=== PATIENT | female | born 1955 | race African-American/Black ===

== ENCOUNTER 2021-03-06 07:08 | Observation (INO) | payer OTHER ==
[2021-03-01 13:57] LABS: BASOPHILS % 0.4 % (0.0-1.0); EOSINOPHILS # (AUTO) 0.1 (0.0-0.4); EOSINOPHILS % 1.7 % (0.0-6.0); HEMATOCRIT 41.5 % (34.2-44.1); HEMOGLOBIN 13.3 g/dL (12.0-16.0); LYMPHOCYTES # (AUTO) 2.1 (1.0-3.2); LYMPHOCYTES % 26.1 % (18.0-39.1); MEAN CORPUSCULAR HEMOGLOBIN 30.1 pg (28-32); MEAN CORPUSCULAR VOLUME 93.9 fL (81-99); MONOCYTES # (AUTO) 0.7 (0.2-0.8); MONOCYTES % 8.9 % (4.4-11.3); NEUTROPHILS # (AUTO) 5.1 (2.1-6.9); NEUTROPHILS % 62.5 % (38.7-80.0); PLATELET COUNT 209 x10e3/uL (140-360); RED BLOOD COUNT 4.42 x10e6/uL (3.6-5.1); RED CELL DISTRIBUTION WIDTH 13.3 % (11.7-14.4)
[2021-03-01 14:13] LABS: INR 0.95; PROTHROMBIN TIME 13.3 seconds (11.9-14.5)
[2021-03-01 14:14] LABS: PARTIAL THROMBOPLASTIN TIME 28.1 seconds (23.8-35.5)
[2021-03-01 14:17] LABS: ANION GAP 15.1 mmol/L (8-16); CALCIUM 9.2 mg/dL (8.4-10.2); CREATININE, SERUM 1.1 mg/dL (0.57-1.11); POTASSIUM 5.1 mmol/L (3.5-5.1)
[~2021-03-06] VITALS: Ht 162.6 cm; Wt 98.4 kg
[~2021-03-06 07:08] MED LIST: CLONIDINE HCL0.1 MG PO; FUROSEMIDE40 MG PO; IBUPROFEN200 MG PO; LISINOPRIL10 MG PO; METFORMIN HCL500 MG PO; METOPROLOL TART50 MG PO; SIMVASTATIN20 MG PO; ULTRAM50 MG PO
[2021-03-06] MEDS ORDERED: ROPIVACAINE 246.25 MG, EPINEPHRINE HCL 1:1000 1ML 0.5 MG, CLONIDINE HCL 0.08 MG, KETORO... INJ ONE ×5 (07:30)
[2021-03-06] MEDS ORDERED: CELECOXIB 200 MG CAP ONE (07:46)
[2021-03-06] MEDS ORDERED: GABAPENTIN 300 MG CAP ONE (07:47)
[2021-03-06] MEDS ORDERED: DEXAMETHASONE SOD PHOS 10 MG/1 ML VIAL ONE (07:47)
[2021-03-06] MEDS ORDERED: CEFAZOLIN SOD 1 GM/NS 50ML 100 ML IV ONE (07:47)
[2021-03-06] MEDS ORDERED: SODIUM CHLORIDE 0.9% 500ML 500 ML ONE ×2 (08:32→09:09)
[2021-03-06] MEDS ORDERED: TRANEXAMIC ACID 1,000 MG/10 ML ML ONE (08:33)
[2021-03-06] MEDS ORDERED: VANCOMYCIN HCL 1,000 MG ONE (08:33)
[2021-03-06] MEDS ORDERED: VANCOMYCIN HCL 500 MG ONE (09:09)
[2021-03-06] MEDS ORDERED: DIPHENHYDRAMINE HCL INJ 50 MG/ML VIAL IV PRN (10:30)
[2021-03-06] MEDS ORDERED: ONDANSETRON HCL INJ 2MG/ML 2ML 2 MG/ML VIAL IV PRN (10:30)
[2021-03-06] MEDS ORDERED: ACETAMINOPHEN 650 MG SUPP PR PRN (10:30)
[2021-03-06] MEDS ORDERED: KETOROLAC TROMETHAMINE 30 MG/ML VIAL IV PRN (10:30)
[2021-03-06] MEDS ORDERED: DOCUSATE SODIUM 100 MG CAP PO PRN (10:30)
[2021-03-06] MEDS ORDERED: HYDROCODONE/APAP 5MG-325MG TAB PO PRN (10:30)
[2021-03-06 13:39] VITALS: BP 149/87
[2021-03-06 13:41] VITALS: BP 149/87
[2021-03-06] MEDS ORDERED: LIDOCAINE HCL 2% LOCAL INJ 5 ML SDV VIAL INJ ONE (14:01)
[2021-03-06] MEDS ORDERED: PROPOFOL IV EMULSION 10 MG/ML 20 ML VIAL ONE (14:01)
[2021-03-06] MEDS ORDERED: LIDOCAINE HCL 2% JELLY 5 ML TUBE ONE (14:01)
[2021-03-06] MEDS ORDERED: POVIDONE IODINE 0.05% 0.05 % ML PO ONE (14:01)
[2021-03-06] MEDS ORDERED: DEXAMETHASONE SOD PHOS INJ 4 MG/ML VIAL ONE (14:01)
[2021-03-06] MEDS ORDERED: ONDANSETRON HCL INJ 2MG/ML 2ML 2 MG/ML VIAL ONE (14:01)
[2021-03-06] MEDS ORDERED: DESFLURANE 240 ML BTL INH ONE (14:01)
[2021-03-06] MEDS ORDERED: SEVOFLURANE INHAL SOLN 250 ML PEN BTL ONE (14:01)
[2021-03-06] MEDS ORDERED: EPHEDRINE SULFATE INJ 50 MG/ML VIAL ONE (14:01)
[2021-03-06] MEDS ORDERED: FENTANYL CITRATE/PF 100MCG/2 ML INJ ONE (14:03)
[2021-03-06 15:59] VITALS: BP 152/89
[2021-03-06] MEDS: CELECOXIB 100 MG CAP PO SCH (16:21)
[2021-03-06] MEDS: ASPIRIN 325 MG TAB PO SCH (16:21)
[2021-03-06] MEDS: CEFAZOLIN SOD 1 GM/NS 50ML 50 ML IV SCH ×2 (16:21→21:58)
[2021-03-06] MEDS: SODIUM CHLORIDE 0.9% 1000ML 1,000 ML IV SCH ×2 (16:21→21:13)
[2021-03-06 20:00] VITALS: BP_SYST 119; BP_SYST 152; BP_DIAS 79; BP_DIAS 89
[2021-03-06] MEDS ORDERED: ZOLPIDEM TARTRATE 5 MG TAB PO PRN (21:00)
[2021-03-06] MEDS: HYDROCODONE/APAP 7.5MG-325MG 1 EA TAB PO PRN (21:13)
[2021-03-07] VITALS: BP 111/61
[2021-03-07 04:00] VITALS: BP 108/72
[2021-03-07] MEDS: CEFAZOLIN SOD 1 GM/NS 50ML 50 ML IV SCH (05:23)
[2021-03-07] MEDS: SODIUM CHLORIDE 0.9% 1000ML 1,000 ML IV SCH (05:37)
[2021-03-07 06:19] LABS: HEMATOCRIT 36.2 % (34.2-44.1); HEMOGLOBIN 11.6 g/dL (12.0-16.0)
[2021-03-07 07:55] VITALS: BP 116/62
[2021-03-07] MEDS ORDERED: METFORMIN HCL 500 MG TAB PO SCH (09:00)
[2021-03-07] MEDS ORDERED: METOPROLOL TARTRATE 50 MG TAB PO SCH (09:00)
[2021-03-07] MEDS: CELECOXIB 100 MG CAP PO SCH (10:00)
[2021-03-07] MEDS: ASPIRIN 325 MG TAB PO SCH (10:00)
[2021-03-07] MEDS: HYDROCODONE/APAP 7.5MG-325MG 1 EA TAB PO PRN (10:18)
[2021-03-07 10:30] VITALS: BP 116/62
[2021-03-07] MEDS ORDERED: ACETAMINOPHEN 1000 MG/100 ML IV PRN (10:30)
[2021-03-07 11:49] VITALS: BP 123/82
[2021-03-07] MEDS ORDERED: SIMVASTATIN 20 MG TAB PO SCH (21:00)
== END 2021-03-07 12:18 | disposition home or self-care (01) ==
LOC: OR 07:08 → PACU V 10:19 → MED/SURG 13:38
PROVIDERS: ADMIT Specialist; ATTEND Specialist
DX: M17.11 Unilateral primary osteoarthritis, right knee (principal); E11.9 Type 2 diabetes mellitus without complications; I10 Essential (primary) hypertension; Z79.4 Long term (current) use of insulin
CPT/HCPCS: 36415; 71046; 80048; 82948; 85014; 85018; 85025; 85610; 85730; 86850; 86900; 86920; 93005; C1713; C1776; G0378; J0171; J0690; J1100; J1885; J2001; J2405; J2795; J3010; J3370; J7030; J7040; U0002

== ENCOUNTER → 2022-03-11 | Day surgery (SDC) | payer OTHER ==
[2022-03-08 11:26] LABS: BASOPHILS % 0.4 % (0.0-1.0); EOSINOPHILS # (AUTO) 0.1 (0.0-0.4); EOSINOPHILS % 2.3 % (0.0-6.0); HEMATOCRIT 41.9 % (34.2-44.1); HEMOGLOBIN 13.2 g/dL (12.0-16.0); LYMPHOCYTES # (AUTO) 1.1 (1.0-3.2); LYMPHOCYTES % 20.1 % (18.0-39.1); MEAN CORPUSCULAR HEMOGLOBIN 30.1 pg (28-32); MEAN CORPUSCULAR HGB CONC 31.5 g/dL (31-35); MEAN CORPUSCULAR VOLUME 95.7 fL (81-99); MONOCYTES # (AUTO) 0.6 (0.2-0.8); MONOCYTES % 10.1 % (4.4-11.3); NEUTROPHILS # (AUTO) 3.7 (2.1-6.9); NEUTROPHILS % 66.9 % (38.7-80.0); PLATELET COUNT 201 x10e3/uL (140-360); RED BLOOD COUNT 4.38 x10e6/uL (3.6-5.1); RED CELL DISTRIBUTION WIDTH 13.6 % (11.7-14.4)
[2022-03-08 11:41] LABS: ANION GAP 13.6 mmol/L (8-16); CALCIUM 9.3 mg/dL (8.4-10.2); CREATININE, SERUM 1.17 mg/dL (0.57-1.11); POTASSIUM 4.6 mmol/L (3.5-5.1)
[~2022-03-11] MED LIST changes: +DEXAMETHASONE SOD PHOS INJ 4 MG/ML SDV ONE; +FENTANYL CITRATE/PF 100MCG/2 ML INJ ONE; +LIDOCAINE HCL 2% LOCAL INJ 5 ML SDV VIAL INJ ONE; +MIDAZOLAM HCL 2 MG/2 ML VIAL ONE; +NEURONTIN300 MG PO; +ONDANSETRON HCL INJ 2MG/ML 2ML 2 MG/ML VIAL ONE; +POVIDONE IODINE 0.05% 0.05 % ML PO ONE; +PRAZIQUANTEL600 MG PO; +PROPOFOL IV EMULSION 10 MG/ML 20 ML VIAL ONE; +SEVOFLURANE INHAL SOLN 250 ML PEN BTL ONE
[2022-03-11 10:38] VITALS: BP 161/91
== END | disposition home or self-care (01) ==
LOC: OR 05:31
PROVIDERS: ATTEND Specialist
DX: M23.8X1 Other internal derangements of right knee (principal); Z96.651 Presence of right artificial knee joint; E11.22 Type 2 diabetes mellitus with diabetic chronic kidney disease; I12.9 Hypertensive chronic kidney disease with stage 1 through stage 4 chronic kidney disease, or unspecified chronic kidney disease; N18.9 Chronic kidney disease, unspecified; E78.5 Hyperlipidemia, unspecified; B19.10 Unspecified viral hepatitis B without hepatic coma; Z88.6 Allergy status to analgesic agent; Z01.812 Encounter for preprocedural laboratory examination; Z01.818 Encounter for other preprocedural examination; Z20.822 Contact with and (suspected) exposure to COVID-19; Z79.84 Long term (current) use of oral hypoglycemic drugs; Z79.899 Other long term (current) drug therapy; Z68.36 Body mass index [BMI] 36.0-36.9, adult; Z87.891 Personal history of nicotine dependence; Z92.3 Personal history of irradiation
CPT/HCPCS: 36415; 71046; 80048; 82948; 85025; J0690; J1100; J2001; J2250; J2405; J3010; U0002